=== PATIENT | female | born 1995 | race Caucasian/White ===

== ENCOUNTER 2016-12-21 03:21 | Inpatient (IN) | payer MEDICAID, OTHER ==
[~2016-12-21] VITALS: Ht 157.5 cm; Wt 77.9 kg
[~2016-12-21 03:21] MED LIST: no meds
[2016-12-21 03:55] VITALS: Ht 157.5 cm; Wt 77.9 kg
[2016-12-21 03:56] VITALS: BP 123/82; PULSE 69; RESP 18
[2016-12-21] MEDS ORDERED: LIDOCAINE 1% (MPF) 30 ML INJ INJ PRN (04:00)
[2016-12-21] MEDS ORDERED: OXYTOCIN 30 UNITS/LR 500 ML IV PRN ×2 (04:00→13:30)
[2016-12-21] MEDS ORDERED: OXYTOCIN 30 UNITS/LR 500 ML IV SCH ×3 (04:00)
[2016-12-21] MEDS ORDERED: CARBOPROST 250 MCG INJ IM PRN ×2 (04:00→13:30)
[2016-12-21] MEDS ORDERED: IBUPROFEN 600 MG TAB PO PRN (04:00)
[2016-12-21] MEDS ORDERED: MISOPROSTOL 200 MCG TAB PR PRN ×2 (04:00→13:30)
[2016-12-21] MEDS ORDERED: LACTATED RINGER'S 1,000 ML IV PRN (04:00)
[2016-12-21] MEDS ORDERED: BUTORPHANOL 2 MG INJ IV PRN ×2 (04:00)
[2016-12-21] MEDS ORDERED: AMPICILLIN 2 GM/NS (PMX) 100 ML IV ONE (04:00)
[2016-12-21] MEDS ORDERED: OXYCODONE/ASPIRIN (4.88/325) TAB PO PRN (04:00)
[2016-12-21] MEDS ORDERED: METHYLERGONOVINE 0.2 MG INJ IM PRN ×2 (04:00→13:30)
[2016-12-21] MEDS: LACTATED RINGER'S 1,000 ML IV SCH ×2 (04:26→05:42)
[2016-12-21 04:40] LABS: BASOPHILS % 0.3 % (0.0-2.0); EOSINOPHILS % 0.2 % (0.0-7.0); HEMATOCRIT 36.5 % (37.0-47.0); HEMOGLOBIN 12.7 g/dl (12.0-16.0); LYMPHOCYTES # 1.3 10^3/ul (0.8-2.9); LYMPHOCYTES % 14.3 % (15.0-51.0); MEAN CORPUSCULAR HEMOGLOBIN 29.4 pg (29.0-33.0); MEAN CORPUSCULAR HGB CONC 34.8 g/dl (32.0-37.0); MEAN CORPUSCULAR VOLUME 84.5 fl (82.0-101.0); MEAN PLATELET VOLUME 10.5 fl (7.4-10.4); MONOCYTE # 0.5 10^3/ul (0.3-0.9); MONOCYTES % 5.7 % (0.0-11.0); NEUTROPHILS % 79.1 % (39.0-77.0); PLATELET COUNT 195 10^3/UL (140-415); RED BLOOD COUNT 4.32 10^6/ul (4.20-5.40); RED CELL DISTRIBUTION WIDTH 14.1 % (11.5-14.5); WHITE BLOOD COUNT 9.3 10^3/ul (4.8-10.8)
--- NOTE | 2016-12-21 04:55 | TRIAGE ---
OB Triage Datetime Report Generated by CPN: 12/21/2016 04:55 Datetime: 12/21/2016 04:38 Time of Arrival: 12/21/2016 04:00 EGA: 38.3 Arrived By: Wheelchair Arrived From: Other Unit in Hospital Datetime: 12/21/2016 04:31 EGA: 38.3 Datetime: 12/21/2016 04:15 Assessment Type: Admission Assessment Maternal Assessment Level of Consciousness: Fully Conscious DTR's/Clonus: DTRs 2+; No Clonus Headache: Denies Blurred Vision: No Respiratory Effort: Unlabored; Regular Rhythm; Equal Expansion Breath Sounds, Left: Clear and Equal Breath Sounds, Right: Clear and Equal Nausea/Vomiting: Denies RUQ Epigastric Pain: Denies Lower Extremities Edema: Bilateral Lower Extremities Degree: 1+ Upper Extremities Edema: None Degree: None Facial Edema: None Fall Risk Assessment History of Falling: (0) No Secondary Diagnosis: (0) No Ambulatory Aid: (0) Bedrest/Nurse Assist IV Therapy: (20) Yes Gait: (0) Normal/Bedrest/Immobile Mental Status: (0) Oriented to Own Ability Fall Score: 20 Fall Risk Score Definition: No Risk: No action required Pain Assessment Pain Scale: 7 Pain Presence: Intermittent Pain Type: Contraction Pain Location: Abdomen; Back Pain Goal: 5 Datetime: 12/21/2016 03:45 Stage of : OB Triage Datetime: 12/21/2016 03:40 Stage of : OB Triage Vaginal Exam Dilatation (cms): 2.0 Effacement (%): 70 Station: -3 Exam By: King VALE Membrane Status: Ruptured Membranes Ruptured Date/Time: 12/21/2016 01:15 Membranes Rupture Method: Spontaneous Amniotic Fluid Color: Clear Amniotic Fluid Amount: Moderate Amniotic Fluid Odor: Normal Vaginal Bleeding: None Pool: Positive Nitrazine: Positive Cervix, Consistency: Soft Datetime: 12/21/2016 03:30 Time of Arrival: 12/21/2016 03:15 Arrived By: Wheelchair Arrived From: Emergency Dept Chief Complaint: SROM @0115 AND UC SINCE @0050 Movement: Present Contractions: Regular Time Contractions Began: 12/21/2016 00:50 Contractions: Q2-3 Rupture of Membranes: Ruptured Vaginal Bleeding: None Vaginal Discharge: Present Recent Sexual Intercouse: Denies Abdominal Trauma: Not Applicable Patient Complaints: Contractions Initial Plan: EFM, SVE, NITRAZINE, CALL OB Datetime: 12/21/2016 03:27 Labor Evaluation Contraction Comments: APPLIED Heart Rate Comments: APPLIED
[2016-12-21 04:59] LABS: BARBITURATES Negative (NEGATIVE); BENZODIAZEPINES Negative (NEGATIVE); CANNABINOIDS Negative (NEGATIVE); COCAINE Negative (NEGATIVE); OPIATES Negative (NEGATIVE)
[2016-12-21] MEDS ORDERED: PRENAT PO (04:59)
[2016-12-21 05:00] LABS: ADD UMIC YES; INR 0.94; PROTIME 12.6 Sec (12.2-14.2); UR ASCORBIC ACID NEGATIVE (NEGATIVE); UR BILIRUBIN (Dip) NEGATIVE (NEGATIVE); UR BLOOD (Dip) 2+ mg/dL (NEGATIVE); UR CLARITY SLIGHTLY CLOUDY (CLEAR); UR COLOR STRAW (YELLOW); UR GLUCOSE (Dip) NEGATIVE (NEGATIVE); UR KETONES (Dip) NEGATIVE (NEGATIVE); UR LEUKOCYTE ESTERASE (Dip) NEGATIVE Leu/ul (NEGATIVE); UR NITRITE (Dip) NEGATIVE (NEGATIVE); UR RBC 1 /HPF (0-5); UR SPECIFIC GRAVITY (Dip) 1.009 (1.003-1.030); UR TOTAL PROTEIN (Dip) NEGATIVE (NEGATIVE); UR UROBILINOGEN (Dip) NEGATIVE (NEGATIVE)
[2016-12-21 05:01] LABS: PARTIAL THROMBOPLASTIN TIME 30.9 Sec (25.0-35.0)
[2016-12-21] MEDS ORDERED: FENTAnyl 2MCG/ML-ROPIV 0.2% 100 ML ONE (06:01)
[2016-12-21] MEDS ORDERED: FENTAnyl 2MCG/ML-ROPIV 0.2% 100 ML BAG EPI SCH (06:30)
[2016-12-21] MEDS ORDERED: ONDANSETRON 4 MG INJ IV PRN (06:30)
[2016-12-21] MEDS ORDERED: DIPHENHYDRAMINE 50 MG INJ IV PRN (06:30)
[2016-12-21] MEDS ORDERED: NALOXONE (0.4 MG/ML) INJ IV PRN (06:30)
[2016-12-21] MEDS ORDERED: AMPICILLIN 1 GM/NS (PMX) 50 ML IV SCH (08:00)
[2016-12-21] MEDS ORDERED: MINERAL OIL LIGHT 10 ML VIAL ONE (11:17)
[2016-12-21] MEDS ORDERED: MINERAL OIL LIGHT 10 ML VIAL TOP ONE (11:30)
--- NOTE | 2016-12-21 11:43 | LDN ---
Date/Time of Note Date/Time of Note DATE: 12/21/16 TIME: 11:43 Delivery Summary NSD Placenta Delivered: Spontaneously Meconium: none Indication for episiotomy 1 Anesthesia type: None Estimated blood loss: 350 Sponge & Needle done & correct: Yes All needle counts correct: Yes Any foreign bodies felt in the: No Problems: RAE CANTU MD Dec 21, 2016 11:43
--- NOTE | 2016-12-21 11:43 | HP ---
Date/Time of Note Date/Time of Note DATE: 12/21/16 TIME: 11:42 OB - History Hx of Present Free Text/Dictation at term with SROM and labor Care: Good Care Ultrasounds: Normal mid trimester US Obstetrical Complications: None Medical Complications: None Past Family/Social History * Past Medical, Surgical, Family and Obstetric Histories reviewed from chart. OB Admission Exam Vital Signs Vital Signs Vital Signs Date Time Temp Pulse Resp B/P Pulse Ox O2 Delivery O2 Flow Rate FiO2 12/21/16 03:56 98.3 69 18 123/82 Room Air Physical Exam HEENT: WNL Heart: Rhythm Normal Lungs: Clear, Equal Abdomen: WNL Extremities: Normal Reflexes: Normal Cervical Dilatation: 10cm Effacement: 100% Station: +3 Membranes: Ruptured Amniotic Fluid: Clear Accelerations: Accelerations Present Last 72 hours Lab Results CBC & BMP 12/21/16 03:40 OB Assessment/Plan Reason for admission: active labor Plan: Expectant Management RAE CANTU MD Dec 21, 2016 11:43
[2016-12-21] MEDS ORDERED: LACTATED RINGER'S 1,000 ML IV* SCH (13:25)
[2016-12-21] MEDS: OXYTOCIN 30 UNITS/LR 500 ML IV SCH ×2 (13:25→21:19)
[2016-12-21 13:30] VITALS: BP 117/65; PULSE 71; RESP 18
[2016-12-21] MEDS ORDERED: ZOLPIDEM 5 MG TAB PO PRN (13:30)
[2016-12-21] MEDS ORDERED: BENZOCAINE 20% 56 ML SPRAY TOP PRN (13:30)
[2016-12-21] MEDS ORDERED: ACETAMINOPHEN 325 MG TAB PO PRN (13:30)
[2016-12-21] MEDS ORDERED: LANOLIN 7 GM TUBE TOP PRN (13:30)
[2016-12-21] MEDS ORDERED: DIPHENHYDRAMINE 25 MG CAP PO PRN (13:30)
[2016-12-21] MEDS ORDERED: WITCH HAZEL/GLYCERIN PAD PR PRN (13:30)
[2016-12-21] MEDS ORDERED: HYDROCODONE/APAP (5/325) TAB PO PRN (13:30)
[2016-12-21 15:30] VITALS: BP 108/81; RESP 18
[2016-12-21] MEDS: IBUPROFEN 800 MG TAB PO SCH ×2 (18:00→23:51)
[2016-12-21 20:00] VITALS: BP 116/66; PULSE 91; RESP 20
[2016-12-22] VITALS: BP 90/50; PULSE 71; RESP 18
[2016-12-22 04:00] VITALS: BP 98/65; PULSE 78; RESP 19
[2016-12-22] MEDS: IBUPROFEN 800 MG TAB PO SCH ×3 (06:47→17:31)
[2016-12-22 07:53] LABS: BASOPHILS % 0.2 % (0.0-2.0); EOSINOPHILS # 0.1 10^3/ul (0.0-0.5); EOSINOPHILS % 0.3 % (0.0-7.0); HEMATOCRIT 37.3 % (37.0-47.0); LYMPHOCYTES # 2.2 10^3/ul (0.8-2.9); LYMPHOCYTES % 14.3 % (15.0-51.0); MEAN CORPUSCULAR HEMOGLOBIN 27.9 pg (29.0-33.0); MEAN CORPUSCULAR HGB CONC 32.2 g/dl (32.0-37.0); MEAN CORPUSCULAR VOLUME 86.7 fl (82.0-101.0); MEAN PLATELET VOLUME 10.4 fl (7.4-10.4); MONOCYTE # 0.8 10^3/ul (0.3-0.9); MONOCYTES % 5.1 % (0.0-11.0); NEUTROPHILS % 79.5 % (39.0-77.0); PLATELET COUNT 190 10^3/UL (140-415); RED CELL DISTRIBUTION WIDTH 14.6 % (11.5-14.5); WHITE BLOOD COUNT 15.2 10^3/ul (4.8-10.8)
[2016-12-22 08:45] VITALS: BP 105/63; PULSE 77; RESP 16
[2016-12-22] MEDS: SENNA/DOCUSATE NA (8.6MG/50MG) TAB PO PRN (08:53)
[2016-12-22 16:49] VITALS: BP 110/70; PULSE 81; RESP 18
[2016-12-22] MEDS: MAGNESIUM HYDROXIDE 30ML CUP PO PRN (18:07)
--- NOTE | 2016-12-22 18:29 | QN ---
Documentation Comment ppd1 pt doing well per family vss exam wn a/p ppd1 continue care CHRISTOPHER SHELDON MD Dec 22, 2016 18:29
[2016-12-22 20:30] VITALS: BP 108/70; PULSE 75; RESP 18
[2016-12-23 04:09] VITALS: BP 102/60; PULSE 70; RESP 18
[2016-12-23] MEDS: IBUPROFEN 800 MG TAB PO SCH ×3 (04:40→12:52)
[2016-12-23] MEDS ORDERED: VARICELLA VACCINE LIVE/PF 1,350 UNIT/0.5 ML ML SC* ONE (09:00)
[2016-12-23] MEDS ORDERED: MEASLES,MUMPS,RUBELLA VACCINE INJ SC* ONE (09:00)
[2016-12-23] MEDS ORDERED: DIPHTH/TET/ACEL PERTUSS (ADULT) 0.5 ML VIAL IM* ONE (09:00)
[2016-12-23] MEDS: SENNA/DOCUSATE NA (8.6MG/50MG) TAB PO PRN (09:39)
[2016-12-23] MEDS: MAGNESIUM HYDROXIDE 30ML CUP PO PRN (09:39)
[2016-12-23 11:01] VITALS: BP 104/61; PULSE 16; RESP 16
--- NOTE | 2016-12-23 12:17 | DS ---
Date/Time of Note Date/Time of Note DATE: 12/23/16 TIME: 12:14 Obstetrical Discharge Record Final Diagnosis Final Diagnosis: Term delivered Vaginal Delivery Obstetrical Delivery: Spontaneous Condition on Discharge Physical Assessment Voiding: Yes Bowel Movement: Yes Breast: Soft, non-tender Fundus: Firm Episiotomy: Current Medications Medications (Trade) Dose Ordered Sig/Jerardo Route PRN Reason Start Time Stop Time Status Last Admin Dose Admin Lactated Ringer's 1,000 ml @ 125 mls/hr Q8H IV 12/21/16 03:51 12/21/16 13:27 DC 12/21/16 05:42 Ampicillin 100 ml @ 100 mls/hr ONCE ONCE IV 12/21/16 04:00 12/21/16 04:59 DC 12/21/16 04:27 Ampicillin 50 ml @ 100 mls/hr Q4H IV 12/21/16 08:00 12/21/16 13:27 DC 12/21/16 08:27 Oxytocin/Lactated Ringer's 500 ml @ 0 mls/hr TITRATE IV 12/21/16 04:00 12/21/16 13:27 DC 12/21/16 06:27 Butorphanol Tartrate (Stadol) 1 mg Q2H PRN IV PAIN 12/21/16 04:00 12/21/16 13:27 DC Butorphanol Tartrate (Stadol) 2 mg Q2H PRN IV PAIN 12/21/16 04:00 12/21/16 13:27 DC Lidocaine 30 ml 30 ml ONCE PRN INJ EPISIOTOMY/TEARING 12/21/16 04:00 12/21/16 13:27 DC Oxytocin/Lactated Ringer's 500 ml @ 125 mls/hr ONCE -MAY REPEAT X1 IV 12/21/16 04:00 12/21/16 13:27 DC 12/21/16 11:55 Oxytocin/Lactated Ringer's 500 ml @ 125 mls/hr ONCE IV 12/21/16 04:00 12/21/16 13:27 DC 12/21/16 12:13 Ibuprofen (Motrin) 600 mg ONCE PRN PO Mild Pain (Pain Score 1-3) 12/21/16 04:00 12/21/16 13:27 DC Oxycodone/Aspirin 2 tab 2 tab ONCE PRN PO Moderate to Severe Pain (4-10) 12/21/16 04:00 12/21/16 13:27 DC Lactated Ringer's 1,000 ml @ 2,000 mls/hr Q30M PRN IV PRE-EPIDURAL BOLUS 12/21/16 04:00 12/21/16 13:27 DC Oxytocin/Lactated Ringer's 500 ml @ 0 mls/hr ONCE PRN IV For Hemorrhage Management 12/21/16 04:00 12/21/16 13:27 DC Methylergonovine Maleate (Methergine) 0.2 mg ONCE PRN IM VAGINAL BLEEDING 12/21/16 04:00 12/21/16 13:27 DC Carboprost Tromethamine (Hemabate) 250 mcg ONCE PRN IM VAGINAL BLEEDING 12/21/16 04:00 12/21/16 13:27 DC Misoprostol 1000 mcg 1,000 mcg ONCE PRN AR VAGINAL BLEEDING 12/21/16 04:00 12/21/16 13:27 DC Fentanyl/ Ropivacaine 100 ml @ ud STK-MED ONCE .ROUTE 12/21/16 06:01 12/21/16 06:02 DC Naloxone HCl (Narcan) 0.1 mg Q2M PRN IV FOR RESP RATE 8 OR LESS 12/21/16 06:30 12/21/16 13:27 DC Diphenhydramine HCl (Benadryl) 25 mg Q6H PRN IV ITCHING 12/21/16 06:30 12/21/16 13:27 DC Ondansetron HCl (Zofran Inj) 4 mg Q6H PRN IV NAUSEA AND/OR VOMITING 12/21/16 06:30 12/21/16 13:27 DC Fentanyl/ Ropivacaine 100 ml EPIDURAL INFUSION EPI 12/21/16 06:30 12/21/16 13:27 DC Mineral Oil (Muri-Lube) 10 ml STK-MED ONCE .ROUTE 12/21/16 11:17 12/21/16 11:18 DC Mineral Oil 10 ml 10 ml ONCE ONCE TOP 12/21/16 11:30 12/21/16 11:58 DC Oxytocin/Lactated Ringer's 500 ml @ 125 mls/hr Q4H IV 12/21/16 13:25 12/21/16 21:24 DC 12/21/16 21:19 Lactated Ringer's (Lr) 1,000 ml @ 125 mls/hr Q8H IV* 12/21/16 13:25 12/22/16 19:56 DC Ibuprofen (Motrin) 800 mg Q6 PO 12/21/16 18:00 12/23/16 04:40 Acetaminophen/ Hydrocodone Bitart ([place] (5/325)) 2 tab Q4H PRN PO PAIN LEVEL 6-10 12/21/16 13:30 Diphenhydramine HCl (Benadryl) 25 mg Q6H PRN PO PRURITUS 12/21/16 13:30 Zolpidem Tartrate (Ambien) 10 mg QHS PRN PO INSOMNIA 12/21/16 13:30 Senna/Docusate Sodium (Senokot-S) 1 tab BID PRN PO CONSTIPATION 12/21/16 13:30 12/23/16 09:39 Magnesium Hydroxide (Milk Of Mag) 30 ml Q12H PRN PO CONSTIPATION 12/21/16 13:30 12/23/16 09:39 Witch Lia/ Glycerin (Tucks Pads) 1 pad BEDSIDE MEDICATION PRN AR HEMORRHOID/EPISIOTMY PAIN 12/21/16 13:30 12/21/16 16:59 Benzocaine (Dermoplast [place]) 1 spray BEDSIDE MEDICATION PRN TOP HEMORRHOID/EPISIOTMY PAIN 12/21/16 13:30 12/21/16 17:00 Lanolin ([id number]-Svxjzb) 1 applic BEDSIDE MEDICATION PRN TOP BEDSIDE FOR SAI TO NIPPLES 12/21/16 13:30 12/21/16 17:03 Measles/Mumps/ Rubella Vaccine Live (Mmr Ii Vaccine) 0.5 ml ONCE ONCE SC* 12/23/16 09:00 12/23/16 09:01 DC Diphtheria/ Tetanus/Acell Pertussis (Adacel) 0.5 ml ONCE ONCE IM* 12/23/16 09:00 12/23/16 09:01 DC Varicella Virus Vaccine Live (Varivax Vaccine With Diluent) 1,350 unit ONCE ONCE SC* 12/23/16 09:00 12/23/16 09:01 DC Acetaminophen 650 mg 650 mg Q4H PRN PO ELEVATED TEMPERATURE 12/21/16 13:30 Oxytocin/Lactated Ringer's 500 ml @ 0 mls/hr ONCE PRN IV For Hemorrhage Management 9/3/17 13:30 Methylergonovine Maleate (Methergine) 0.2 mg ONCE PRN IM VAGINAL BLEEDING 12/21/16 13:30 Carboprost Tromethamine (Hemabate) 250 mcg ONCE PRN IM VAGINAL BLEEDING 12/21/16 13:30 Misoprostol (Cytotec) 1,000 mcg ONCE PRN AR VAGINAL BLEEDING 12/21/16 13:30 Calf Tenderness: No Patient Condition: Good HAILEY ELIZALDE MD Dec 23, 2016 12:17
[2016-12-24 13:16] LABS: RUBELLA ANTIBODY - IGG <0.90 index
== END 2016-12-23 18:50 | disposition home or self-care (01) | DRG 775 ==
LOC: OBT 03:21 → L-D 03:23 → OBT 03:49 → L-D 03:50 → PP1 13:39
PROVIDERS: ADMIT Obstetrics & Gynecology; ATTEND Obstetrics & Gynecology
PROC: 10E0XZZ Delivery of Products of Conception, External Approach (ICD-10-PCS; principal; 2016-12-21)
PROC: 0W8NXZZ Division of Female Perineum, External Approach (ICD-10-PCS; 2016-12-21)
PROC: 3E033VJ Introduction of Other Hormone into Peripheral Vein, Percutaneous Approach (ICD-10-PCS; 2016-12-21)
DX: O80 Encounter for full-term uncomplicated delivery (principal); Z37.0 Single live birth; Z3A.38 38 weeks gestation of pregnancy
CPT/HCPCS: 62319; 80307; 81001; 85025; 85610; 85730; 86592; 86703; 86762; 86900; 86901; 87340; 90715; 90716; G0463; J0290; J2590; J3010; J7120

== ENCOUNTER 2017-12-03 18:48 | Emergency (ER) | END 2017-12-04 01:27 | disposition home or self-care (01) ==

== ENCOUNTER 2018-12-22 05:11 | Emergency (ER) | payer SELFPAY ==
[~2018-12-22] VITALS: Ht 160 cm; Wt 72.4 kg
[~2018-12-22 05:11] MED LIST changes: +CEPH-443 PO; +DICY10CA40 PO; +ONDA4TAB14 PO; +PRENAT PO; -no meds
[2018-12-22 05:14] VITALS: BP 140/86; PULSE 115; RESP 18; Ht 160 cm; Wt 72.4 kg
[2018-12-22] MEDS ORDERED: SOD CHLORIDE 0.9% 1,000 ML IV STA (05:34)
[2018-12-22] MEDS ORDERED: morphine 4 MG/ML VIAL IV STA (05:34)
[2018-12-22] MEDS ORDERED: CEFTRIAXONE 1 GM/50 ML (PMX) 50 ML IVPB ONE (06:30)
== END 2018-12-22 07:13 | disposition home or self-care (01) ==
LOC: FTE 05:11
DX: R10.11 Right upper quadrant pain (principal)
CPT/HCPCS: 36415; 76705; 80053; 81001; 81003; 81025; 83690; 85025; 96361; 96365; 96375; 99285; J0696; J2270; J7030